=== PATIENT | male | born 1960 | race Caucasian/White ===

== ENCOUNTER 2021-01-11 14:37 | Outpatient (CLI) | payer BC ==
--- NOTE | 2021-01-11 17:55 | Ultrasound Report ---
PROCEDURE: Carotid Doppler Complete INDICATIONS: FAM HIST OF STROKE, MULTINODULAR GOITER TECHNIQUE: Color and pulse Doppler interrogation was performed of both carotid systems, with image documentation and velocity measurements. COMPARISON: None. FINDINGS: Right side: Brachial blood pressure: 115/64 mm Hg. Common carotid artery peak systolic velocity: 95 cm/sec. Internal carotid artery peak systolic velocity: 86 cm/sec. Internal carotid artery end diastolic velocity: 22 cm/sec. External carotid artery peak systolic velocity: 104 cm/sec. ICA/CCA peak systolic ratio: 0.9. Dennis scale imaging description: Mild calcified plaque. Percent internal carotid artery stenosis: Less than 50% stenosis. . Vertebral artery: Flow direction is antegrade. Left side: Brachial blood pressure: 103/64 mm Hg. Common carotid artery peak systolic velocity: 94 cm/sec. Internal carotid artery peak systolic velocity: 84 cm/sec. Internal carotid artery end diastolic velocity: 23 cm/sec. External carotid artery peak systolic velocity: 110 cm/sec. ICA/CCA peak systolic ratio: 0.9 . Dennis scale imaging description: Less than 50% stenosis. Percent internal carotid artery stenosis: Mild calcified plaque. Vertebral artery: Flow direction is antegrade. IMPRESSION: Less than 50% stenosis in the bilateral carotid arteries. The estimate of stenosis included in the report of the imaging study was calculated using the NASCET method Reviewed by: Aniket Mario MD on 01/11/2021 5:54 PM PDT Approved by: Aniket Mario MD on 01/11/2021 5:54 PM PDT Station ID: [id number]
--- NOTE | 2021-01-11 18:06 | Ultrasound Report ---
PROCEDURE: Head or Neck Soft Tissue INDICATIONS: FAM HIST OF STROKE, MULTINODULAR GOITER TECHNIQUE: Real-time scanning was performed of the thyroid gland, with image documentation. COMPARISON: None FINDINGS: Right: Thyroid lobe measures 4.2 x 1.7 x 1.6 cm, and is homogeneous in echotexture. Left: Thyroid lobe measures 3.7 x 1.2 x 1.4 cm, and is homogenous in echotexture. Isthmus: 3 mm thick. Nodule number: One Location: Right superior Size: 0.7 x 0.5 x 0.8 cm. Composition: Cystic Echogenicity: Anechoic Shape: wider than tall. Margins: Smooth Echogenic foci: None Total points: 0 ACR TI-RADS category: TI-RADS 1 Nodule number: Two Location: Right mid anterior Size: 1.1 x 0.6 x 0.8 cm. Composition: Solid Echogenicity: Hypoechoic Shape: wider than tall. Margins: Smooth Echogenic foci: None Total points: 4 ACR TI-RADS category: TI-RADS 4 Nodule number: Three Location: Right mid posterior Size: 1.2 x 0.9 x 0.9 cm. Composition: Solid Echogenicity: Mixed isoechoic/hypoechoic Shape: wider than tall. Margins: Smooth Echogenic foci: None Total points: 4 ACR TI-RADS category: TI-RADS 4 Nodule number: Four Location: Left superior Size: 1.0 x 0.5 x 0.8 cm. Composition: Cystic Echogenicity: Anechoic Shape: wider than tall. Margins: Smooth Echogenic foci: None Total points: 0 ACR TI-RADS category: TI-RADS 1 IMPRESSION: Multiple thyroid nodules. Nodule 2 and nodule 3 in the right thyroid demonstrate imaging characterist ics which are moderately suspicious (TI-RADS 4). Recommend serial follow-up thyroid ultrasound at 1, 2, 3 and 5 years based on criteria outlined below. ACR TI-RADS definitions and recommendations: TI-RADS 1 (benign): 0 points. FNA not needed. TI-RADS 2 (not suspicious): 2 points. FNA not needed. TI-RADS 3 (mildly suspicious): 3 points. "FNA if 2.5 cm or larger, follow up if 1.5 cm or larger (at 1, 3, and 5 years). TI-RADS 4 (moderately suspicious): 4-6 points. "FNA if 1.5 cm or larger, follow up if 1 cm or larger (at 1, 2, 3, and 5 years). TI-RADS 5 (highly suspicious): 7 points or more. "FNA if 1 cm or larger, follow up if 0.5 cm or larger (every year for 5 years). Reviewed by: Myriam Pedraza MD, PhD on 01/11/2021 5:04 PM NELA Approved by: Myriam Pedraza MD, PhD on 01/11/2021 5:04 PM AKANDRES Station ID: [id number]
== END 2021-01-11 14:38 | disposition home or self-care (01) ==
LOC: DI 14:37
PROVIDERS: ATTEND Nurse Practitioner Family
DX: E04.2 Nontoxic multinodular goiter (principal); Z82.3 Family history of stroke; I65.23 Occlusion and stenosis of bilateral carotid arteries
CPT/HCPCS: 93880

== ENCOUNTER 2021-07-15 13:00 | Outpatient (CLI) | payer BC ==
--- NOTE | 2021-07-15 14:54 | XRAY Report ---
PROCEDURE: Shoulder 3 View BILAT INDICATIONS: BILAT SHOULDER PAIN TECHNIQUE: 4 views of the bilateral shoulders were acquired. COMPARISON: None. FINDINGS: BONES: No acute, displaced fracture. The joint spaces are maintained. Left: Mild AC joint osteophytosis. Right: No significant joint. SOFT TISSUES: No focal abnormality or appreciable pneumothorax. IMPRESSION: 1.Mild left shoulder degeneration as detailed above. Reviewed by: Sreedhar Hamilton MD on 07/15/2021 2:52 PM PDT Approved by: Sreedhar Hamilton MD on 07/15/2021 2:52 PM PDT Station ID: [id number]
== END 2021-07-15 23:59 | disposition home or self-care (01) ==
LOC: DI.WOS 13:00
PROVIDERS: ATTEND Physician Assistant
DX: M19.012 Primary osteoarthritis, left shoulder (principal); M25.511 Pain in right shoulder

== ENCOUNTER 2021-08-02 13:15 | Outpatient (CLI) | payer BC ==
[2021-08-02] MEDS ORDERED: TRIAMCINOLONE 40 MG/ML VIAL ONE (13:31)
[2021-08-02] MEDS ORDERED: LIDOCAINE-MPF 1% 10 ML AMP ONE (13:31)
[2021-08-02] MEDS ORDERED: IOTHALAMATE MEGLUMINE 50 ML VIAL ONE (13:31)
[2021-08-02] MEDS ORDERED: ROPIVACAINE 0.5% PF 20 ML AMPULE ONE (13:32)
[2021-08-02] MEDS ORDERED: IOTHALAMATE MEGLUMINE 50 ML VIAL IVP ONE (14:22)
[2021-08-02] MEDS ORDERED: TRIAMCINOLONE 40 MG/ML VIAL IM ONE (14:22)
[2021-08-02] MEDS ORDERED: ROPIVACAINE 0.5% PF 20 ML AMPULE IU ONE (14:24)
[2021-08-02] MEDS ORDERED: LIDOCAINE-MPF 1% 10 ML AMP SUBQ ONE (14:25)
--- NOTE | 2021-08-02 18:21 | XRAY Report ---
PROCEDURE: Inj/Aspiration Major Joint INDICATIONS: ADHESIVE CAPSULITIS OF RIGHT SHOULDER FLUORO TIME: 0.3 minutes TECHNIQUE: The indications, alternatives, benefits, risks, and complications of the procedure were explained to the patient. Written informed consent was obtained and placed in the chart. The patient was placed in an appropriate position on the fluoroscopy table, and a site was chosen for percutaneous access un marie fluoroscopic guidance. Local anesthetic was administered using a 1% lidocaine solution. A hypod ermic or spinal needle was then used to access the symptomatic joint. Intra-articular location of th e needle tip was confirmed by injecting a small amount of contrast, followed by steroid administratio n. The needle was then withdrawn, and a bandage applied to the puncture site. FINDINGS: Joint injected: Right glenohumeral joint Medications injected: 1 mL methylprednisolone and 5 mL 0.5% Ropivacaine mixture. Complications: None. IMPRESSION: Successful fluoroscopically guided administration of steroid and anaesthetic solution into the right glenohumeral joint. Patient reported 7 out of 10 pain prior to the procedure which decreased to 0 out of 10 postinjection. Reviewed by: Jameson Valentine MD on 08/02/2021 6:20 PM PDT Approved by: Jameson Valentine MD on 08/02/2021 6:20 PM PDT Station ID: [id number]
== END 2021-08-02 13:16 | disposition home or self-care (01) ==
LOC: DI 13:15
PROVIDERS: ATTEND Physician Assistant
DX: M75.01 Adhesive capsulitis of right shoulder (principal)
CPT/HCPCS: 20610; 77002; Q9961

== ENCOUNTER 2021-12-01 08:41 | Outpatient (CLI) | payer BC ==
[2021-12-01 14:18] LABS: BASOPHILS # (AUTO) 0.1 10^3/uL (0.0-0.1); BASOPHILS % (AUTO) 1.3 %; EOSINOPHILS # (AUTO) 0.1 10^3/uL (0.0-0.7); EOSINOPHILS % (AUTO) 2.4 %; HCT - HEMATOCRIT 45.3 % (42.0-52.0); HGB - HEMOGLOBIN 14.9 g/dL (14.0-18.0); LYMPHOCYTES # (AUTO) 1.5 10^3/uL (1.5-3.5); LYMPHOCYTES % (AUTO) 32.5 %; MEAN CORPUSCULAR HEMOGLOBIN 32.1 pg (27.0-31.0); MEAN CORPUSCULAR HGB CONC 32.9 g/dL (32.0-36.0); MEAN CORPUSCULAR VOLUME 97.6 fL (80.0-94.0); MONOCYTES # (AUTO) 0.5 10^3/uL (0.0-1.0); MONOCYTES % (AUTO) 11.6 %; NEUTROPHILS # (AUTO) 2.4 10^3/uL (1.5-6.6); PLT - PLATELET COUNT 213 10^3/uL (130-450); RED BLOOD COUNT 4.64 10^6/uL (4.70-6.10); RED CELL DISTRIBUTION WIDTH 11.9 % (12.0-15.0); WHITE BLOOD COUNT 4.6 x10^3/uL (4.8-10.8)
[2021-12-01 14:39] LABS: ALBUMIN 4.1 g/dL (3.2-5.5); ALBUMIN/GLOBULIN RATIO 1.8 (1.0-2.2); ALKALINE PHOSPHATASE 51 IU/L (42-121); ALT ALANINE AMINOTRANSFERASE 19 IU/L (10-60); AST ASPARTATE AMINOTRANSFERASE 19 IU/L (10-42); BILIRUBIN,TOTAL 0.9 mg/dL (0.2-1.0); BUN - BLOOD UREA NITROGEN 15 mg/dL (6-20); CALCIUM 9.2 mg/dL (8.5-10.3); CARBON DIOXIDE - CO2 30 mmol/L (21-32); CHLORIDE 106 mmol/L (101-111); CHOL/HDL RATIO 2.7 (<5.0); CHOLESTEROL 217 mg/dL; GFR - MDRD 76 (>89); GLUCOSE 102 mg/dL (70-100); HDL CHOLESTEROL 79 mg/dL; LDL CHOLESTEROL,CALCULATED 128 mg/dL; LDL/HDL RATIO 1.6 (<3.6); POTASSIUM 4.3 mmol/L (3.5-5.0); SODIUM 141 mmol/L (135-145); TOTAL PROTEIN 6.4 g/dL (6.7-8.2); TRIGLYCERIDES 49 mg/dL; VLDL CHOLESTEROL 10 mg/dL
[2021-12-01 14:50] LABS: THYROID STIMULATING HORMONE 2.53 uIU/mL (0.34-5.60)
[2021-12-01 20:31] LABS: ESTIMATED AVERAGE GLUCOSE 114 mg/dL (70-100); HEMOGLOBIN A1c% 5.6 % (4.27-6.07)
[2021-12-02 05:12] LABS: HCV AB <0.1 s/co ratio (0.0-0.9)
== END 2021-12-01 08:42 | disposition home or self-care (01) ==
LOC: LAB.S 08:41
PROVIDERS: ATTEND Family Medicine
DX: N40.1 Benign prostatic hyperplasia with lower urinary tract symptoms (principal); R35.0 Frequency of micturition; E04.1 Nontoxic single thyroid nodule; Z82.3 Family history of stroke; Z11.59 Encounter for screening for other viral diseases; Z13.220 Encounter for screening for lipoid disorders
CPT/HCPCS: 36415; 80053; 80061; 83036; 83721; 84153; 84443; 85025; 86803; 86900; 86901

== ENCOUNTER 2023-06-22 08:23 | Outpatient (CLI) | payer BC ==
[2023-06-22 15:45] LABS: ALBUMIN 4.1 g/dL (3.2-5.5); BILIRUBIN,DIRECT 0.1 mg/dL (0.03-0.18); BILIRUBIN,TOTAL 0.6 mg/dL (0.2-1.0); TOTAL PROTEIN 6.3 g/dL (6.4-8.9)
== END 2023-06-22 08:24 | disposition home or self-care (01) ==
LOC: LAB.S 08:23
PROVIDERS: ATTEND Family Medicine
DX: E78.00 Pure hypercholesterolemia, unspecified (principal); Z82.3 Family history of stroke
CPT/HCPCS: 36415; 80076